=== PATIENT | male | born 1965 | race Caucasian/White ===

== ENCOUNTER → 2017-10-12 | Outpatient (CLI) | payer OTHER ==
[~2017-10-12] MED LIST: IODIXANOL 320 MG/ML 10 ML VIAL (for Rad CT) IVCONTRAST ONE
--- NOTE | 2017-10-12 14:31 | RADRPT ---
EXAM DATE/TIME: 10/12/2017 14:05 [facility] COMPARISON: No previous studies available for comparison. INDICATIONS : Patient here for IV access for a CatScan study.Difficult stick. MEDICAL HISTORY : Hx of seizures SURGICAL HISTORY : Hx unknown. ENCOUNTER: Initial ACUITY: 1 day PAIN SCORE: 0/10 IMAGE SERIES: 1 ACCESS: Right basilic vein DEVICE(S): 1.) 3/4 [place] Dilator PROCEDURE : 1. Ultrasound guided venous access. The risks, benefits and alternatives to the procedure were explained and verbal and written consent w as obtained. The site was prepped in sterile fashion. Full sterile technique was used, including ca p, mask, sterile gloves and gown and a large sterile sheet. Hand hygiene and 2% chlorhexidine and/or betadine/alcohol prep was utilized per protocol for cutaneous antisepsis. Sterile gel and sterile p robe cover were utilized for ultrasound guidance. The skin and subcutaneous tissues were infiltrate d with local anesthetic solution. With ultrasound guidance the prescribed vein was punctured for venous access. A 4 [place] dilator was placed and was flushed and locked with heparin. The patient tolerated procedure well and there were n o complications. CONCLUSION: Uncomplicated ultrasound guided venous access. James Coleman MD on October 12, 2017 at 14:29 Board Certified Radiologist. This report was verified electronically.
--- NOTE | 2017-10-12 15:18 | RADRPT ---
EXAM DATE/TIME: 10/12/2017 14:20 [facility] COMPARISON: No previous studies available for comparison. INDICATIONS : Benign prostatic hyperplasia. IV CONTRAST: 46 cc Visipaque (iodixanol) IV ORAL CONTRAST: Prescribed oral contrast ingested. RADIATION DOSE: 19.59 CTDIvol (mGy) MEDICAL HISTORY : Benign prostatic hyperplasia, (BPH). renal disease SURGICAL HISTORY : Cholecystectomy. ENCOUNTER: Initial ACUITY: 1 day PAIN SCALE: 4/10 LOCATION: Abdomen TECHNIQUE: Volumetric scanning of the abdomen and pelvis was performed. Using automated exposure control and ad justment of the mA and/or kV according to patient size, radiation dose was kept as low as reasonably achievable to obtain optimal diagnostic quality images. DICOM format image data is available electro nically for review and comparison. FINDINGS: Lung bases are clear. No pleural pericardial effusion. Previous surgical change from presumed atrial septal repair. No acute findings in the liver, spleen, pancreas. 1 cm benign-appearing nodules in both adrenal gland s. Left renal cysts. Right kidney unremarkable. No free fluid. No bowel obstruction. No adenopathy. CONCLUSION: 1. No acute findings on abdomen and pelvic CT. 2. Prostate upper limits normal in size. No evidence for obstructive uropathy. Previous cholecystecto my. 3. Small hiatal hernia. Previous atrial septal repair. Left renal cysts. Tha Vazquez MD on October 12, 2017 at 15:10 Board Certified Radiologist. This report was verified electronically.
== END ==
LOC: HRAD 11:43
PROVIDERS: ATTEND Urology
DX: N40.0 Benign prostatic hyperplasia without lower urinary tract symptoms (principal)
CPT/HCPCS: 36410; 74177; 76937; Q9967